=== PATIENT | female | born 1965 | race Caucasian/White ===

== ENCOUNTER → 2021-12-10 11:00 | Outpatient (CLI) | payer BC, SELFPAY | PROVIDERS: PCP Student in an Organized Health Care Education/Training Program; Referring Provider Orthopaedic Surgery Orthopaedic Surgery of the Spine; Visit Provider Orthopaedic Surgery Orthopaedic Surgery of the Spine | DX: Z53.20 Procedure and treatment not carried out because of patient's decision for unspecified reasons (principal) ==

== ENCOUNTER → 2021-12-13 12:36 | Outpatient (CLI) | payer BC, SELFPAY ==
--- NOTE | 2021-12-13 12:43 | DI.MRI.S_ITS ---
PROCEDURE: MR LUMBAR SPINE WO CON INDICATIONS: Spinal stenosis, lumbar region TECHNIQUE: Noncontrast sagittal T1 spin echo and T2 fast echo, sagittal STIR, and T2 fast spin echo through the lumbar spine. In cases with scoliosis, additional coronal T2 fast spin echo may be performed. COMPARISON: [facility] Outside Film, RG, SPINE LUMB MIN 4VW, 02/01/2017, 15:20. FINDINGS: Image quality: Excellent. Alignment and Curvature: There is normal bony alignment. Bone Marrow: Marrow is of normal overall signal. No acute vertebral body compression fractures. Or superior endplate compression deformity at L1 is unchanged from the study dated February 01, 2017. Spinal Cord: Conus medullaris terminates at the L1 level. Visualized cord demonstrates normal signal and size. Paraspinous Soft Tissues: No paravertebral masses. T12-L1: Moderate disc desiccation and height loss. Broad-based disc bulge. No canal stenosis. No neural foraminal stenosis. L1-L2: Mild disc desiccation and height loss. Mild facet and ligamentum flavum hypertrophy. No canal stenosis. No neural foraminal narrowing. L2-L3: Broad-based disc bulge. No canal stenosis. No foraminal stenosis. L3-L4: No canal stenosis or foraminal narrowing. L4-L5: Moderate disc desiccation and height loss. Vacuum disc phenomenon. Severe facet and ligamentum flavum hypertrophy. There is a 1.2 x 0.6 by 1.0 cm left paracentral disc protrusion with resultant severe canal stenosis. Mild bilateral foraminal narrowing. L5-S1: Moderate disc desiccation and height loss. Vacuum disc phenomenon. Moderate facet and ligamentum flavum hypertrophy. No canal stenosis. Moderate right foraminal narrowing. No left neural foraminal stenosis. IMPRESSION: 1. Left paracentral disc protrusion at L4-5 with resultant severe canal stenosis. 2. Moderate right foraminal narrowing at L5-S1. 3. No other significant canal stenosis or foraminal stenosis of the lumbar spine. Dictated by: Saadia Mart M.D. on 12/15/2021 at 14:54 Approved by: Saadia Mart M.D. on 12/15/2021 at 14:58
== END ==
PROVIDERS: PCP Student in an Organized Health Care Education/Training Program; Referring Provider Orthopaedic Surgery Orthopaedic Surgery of the Spine; Visit Provider Orthopaedic Surgery Orthopaedic Surgery of the Spine
DX: M51.26 Other intervertebral disc displacement, lumbar region (principal); M48.061 Spinal stenosis, lumbar region without neurogenic claudication; M48.07 Spinal stenosis, lumbosacral region
CPT/HCPCS: 72148

== ENCOUNTER 2022-05-20 11:16 | Inpatient (IN) | payer BC, SELFPAY ==
[2022-05-19 08:01] VITALS: BMI 48.4
[2022-05-20] VITALS (12 sets, daily range): BP systolic 91–132; BP diastolic 44–99; PULSE 60–109; RESP 12–18; TEMP 35.9–36.7; O2SAT 92–97; BMI 46.8
--- NOTE | 2022-05-20 | DI.RAD.S_ITS ---
PROCEDURE: XR LUMBAR SPINE 2-3V INDICATIONS: L4-5 MIRCRODISCECTOMY TECHNIQUE: 2 intraoperative fluoroscopic images were obtained. COMPARISON: None. FINDINGS: Two intraoperative fluoroscopic images were obtained from L4-5 microdiskectomy. IMPRESSION: Intraprocedural fluoroscopy was provided for guidance and anatomical localization. Please see the procedure report for further details. Dictated by: Jose Guadalupe Dai M.D. on 05/20/2022 at 16:34 Approved by: Jose Guadalupe Dai M.D. on 05/20/2022 at 16:38
[2022-05-20] MEDS: DEXTROSE GEL(NEWBORN HYPOGLYC) 37 ML/TUBE GEL..GRAM. PO (12:45)
[2022-05-20] MEDS: DEXTROSE 5%-LACTATED RINGERS 250 ML 999 ML IV (13:00)
[2022-05-20 13:04] LABS: COVID19 -Nasal RAPID Negative (Negative)
--- NOTE | 2022-05-20 13:54 | SUR.PREOP ---
Pt to preop in wheelchair. Pt states she has not been able to walk last few days due to back pain radiating into legs and numbness. States she has been pivoting into commode at home. Placed on cart with assist x4. Pt states she has been feeling poorly last five days and not eating much, but has been drinking a lot of cranberry juice. Pt states she feel slightly confused. Initial blood sugar checked resulted as less that 20. Pt states blood sugar this am at home was 29. Pt states she did not treat it as she didn't know she was supposed to. Dr Abdalla notified. Pt difficult Iv stick. Oral glucose was being given when lab here to draw glucose. IV achieved and D5LR bolus given. Blood sugar recheck = 59. Pt feeling less confused. Dr Pabon updated. Lab glucose not resulted as of yet.
--- NOTE | 2022-05-20 14:18 | PM.PREOP ---
Pre-operative Note COVID-19 COVID-19 status: Negative Result date/Date tested (Pos, Neg/Pending): 05/19/22 Criteria for continued procedure: Expected advancement of disease process, Possibility delay results in more complex future surgery or treatment, Increased loss of function, Continuing or worsening of significant or severe pain, Deterioration of the patient's condition or overall health and Delay expected to result in less-positive ultimate med/surg outcome Interval Note History & Physical reviewed/Exam performed by Physician: Yes Changes to H&P: No
[2022-05-20 14:23] LABS: Glucose 27 mg/dL (70-100)
--- NOTE | 2022-05-20 14:44 | PM.OP.1 ---
Operative Date/Time/Diagnoses Date of procedure: 05/20/22 Time of procedure: 15:15 Pre-op diagnosis: 1. L4-5 disc herniation 2. Lumbar radiculopathy Post-op diagnosis: same Procedure & Clinicians Procedure: 1. L4-5 left microdiscectomy 2. Utilization of microsurgical technique and operating microscope Same procedure as scheduled: Yes Indications: Patient has been having chronic back pain and worsening lumbar radiculopathy. Patient failed multiple conservative management with worsening pain weakness and numbness in her lower extremity. Patient has been having difficulty performing activity of daily living. After discussing risks benefits of treatment options, patient elected proceed with surgery. Surgeon: Haylee Saldaña Route Service Representative: Milla Ventura Click Yes if Unassisted: No Anesthesia Type: General Operative Notes Closure Type: primary Specimen(s): none sent Estimated Blood Loss (mL): 5 Blood products transfused: none Procedure in detail: Patient was seen in the preoperative area. Risks and benefits of the surgery was discussed with the patient. Informed consent was obtained from the patient and placed in the chart. Surgical site was marked. Patient was taken to the operative room. General anesthesia was administered. Prophylactic antibiotic was given to the patient less than 30 min before the incision was made. Patient was placed into a prone position on the Jarret table. Patient's back was then prepped and draped in the sterile fashion. Time-out was performed at this time. During the process of placing the patient into the prone position on the Jarret table, patient was identified to have significantly poor hygiene with foul odor coming from many parts of her body. There is significant rash underneath crevices of both breasts. There is abdominal rash also due to poor hygiene. Using AP and lateral C-arm imaging the interval between L4-5 was identified and marked on patient's back. A 1 inch incision 1 in from midline was made on the left side. The fascia was incised in line with skin incision. Globus MARS retractors was placed inside the incision and docked onto the L4 lamina. Using microsurgical technique and operating microscope, a L4 laminotomy was performed using a Kerrison rongeur. Liagamentum flavum was resected at the site of the laminotomy. The disc space at L4-5 was identified. Microdiscectomy was performed by incising the annulus with #11 blade. Microcurettes and pituitary was used to removed herniated disc fragments of disc from the epidural space. After the microdiskectomy was completed, the area medial lateral superior and inferior to the area of the microdiskectomy was inspected and explored using a micro curette. No other impinging structure was identified. During the process of performing the laminotomy, a small pinhole size durotomy was encountered. To seal fibrin sealant was obtained and placed on top of this durotomy. No CSF leakage was encountered. The wound was then irrigated with sterile normal saline. 40 mg Depo-Medrol was placed into the epidural space. The deep fascia was closed with 1-0 Vicryl. The subcutaneous tissue was closed with 2-0 Vicryl. The skin was closed with skin arturo. Patient tolerated the procedure well. There were no complications. Patient was transferred recovery room in stable condition. Patient has a pinhole-sized durotomy which is not having active CSF leakage. Patient may progress activity as tolerated without having to perform any dural leak precaution due to the lack of active CSF leakage. Complications: none Post-operative Condition: stable Disposition: PACU Plan for aftercare: Discharge to home
--- NOTE | 2022-05-20 15:22 | PC.NURSE ---
Day shift: Pt not in room 216 at this time.
[2022-05-20] MEDS: CEFAZOLIN 2 GM/100 ML PREMIX 100 ML IV ×2 (15:27→23:32)
[2022-05-20] MEDS: LACTATED RINGERS 1,000 ML 84 ML IV (15:45)
[2022-05-20] MEDS: BUPIVACAINE 0.5% W/ EPI (PF) 30 ML VIAL INJ (15:53)
--- NOTE | 2022-05-20 16:07 | SUR.OPER ---
Prone on spine table, head in foam head support, padded chest and pelvic supports, gel pad at knees, lower legs supported by pillows; nipples, genitalia and toes free of pressure, arms secured on foam padded arm boards at <90 degrees abduction. Tape over blanket at thigh secured to table, gel pads to all areas of leg that touched side bars of Jarret Table. gel between heels
[2022-05-20] MEDS: ONDANSETRON 4 MG/2 ML INJ IV ×2 (17:26→20:20)
--- NOTE | 2022-05-20 17:33 | SUR.PHASEI ---
Pt discharge order cancelled per MD order. Pt does not meet criteria for discharge to home this evening due to CBG on admit 20 and multiple medical problems, inability to ambulate prior to surgery.
--- NOTE | 2022-05-20 18:13 | PC.NURSE ---
Day shift: Pt in room from PACU at approx 1800. Tired but A&Ox4. Denies any pain or nausea. Bed alarm is on. Oriented to room and call light. Yeast/rash noted from OR team under breasts, ABD folds and groin area. Call light in reach. Bed alarm is on. Tolerating SCD's. Dressing on back (op-site) is CDI.
[2022-05-20] MEDS: SODIUM CHLORIDE 0.9% 1,000 ML 100 ML IV (18:20)
--- NOTE | 2022-05-20 18:45 | PC.WOUNDPHOT ---
Wound Photos 1) Under left breast 2) Under right breast 3) Under right breast 4) Under abdominal pannus
[2022-05-20] MEDS: NYSTATIN POWDER 15GM 1 APPLIC TOP (19:46)
[2022-05-20] MEDS: hydrOXYzine pamoate 25 MG CAPSULE PO (19:46)
[2022-05-20] MEDS: DOCUSATE 100 MG CAPSULE PO (20:07)
[2022-05-20] MEDS: NORTRIPTYLINE 10 MG CAPSULE 20 MG PO (20:07)
[2022-05-20] MEDS: ATORVASTATIN 20 MG TABLET PO (20:07)
[2022-05-20] MEDS: GABAPENTIN 400 MG CAPSULE 800 MG PO (20:07)
[2022-05-20] MEDS: METFORMIN HCL 500 MG TABLET 1000 MG PO (20:07)
[2022-05-20] MEDS: OXYCODONE IR 5 MG TABLET PO (20:07)
[2022-05-20] MEDS: SENNOSIDES 8.6 MG TABLET 17.2 MG PO (20:08)
[2022-05-21] VITALS (21 sets, daily range): BP systolic 61–147; BP diastolic 34–73; PULSE 60–118; RESP 16–46; O2SAT 85–97
--- NOTE | 2022-05-21 | DI.RAD.S_ITS ---
PROCEDURE: XR CHEST FOR PICC 1V INDICATIONS: TUBE PLACEMENT TECHNIQUE: One view of the chest was acquired. COMPARISON: [facility], , XR CHEST 1V, 05/21/2022, 3:09. FINDINGS: Surgical changes and devices: The tip of the endotracheal tube is at the level of ashlyn. There is a right IJ central line with the tip projecting to the area of SVC. Cardiac monitoring device is noted. Lungs and pleura: Bilateral diffuse pulmonary infiltrates. No pleural effusions or pneumothorax. Mediastinum: Mediastinal contours appear normal. Heart size is normal. Bones and chest wall: No suspicious bony lesions. Overlying soft tissues appear unremarkable. IMPRESSION: 1. Endotracheal tube tip at the level of ashlyn. Recommend repositioning. 2. Right IJ central line tip projecting to the area of SVC. 3. Bilateral pulmonary infiltrates compatible with pulmonary edema or bilateral pneumonia. No significant discrepancy with the night shift manager radiology preliminary report. Dictated by: Otf Flores M.D. on 05/21/2022 at 7:51 Approved by: Otf Flores M.D. on 05/21/2022 at 7:54
[2022-05-21] MEDS: ONDANSETRON 4 MG/2 ML INJ IV (02:26)
[2022-05-21] MEDS: NOREPINEPHRINE BITARTRATE/D5W 4 MG/250 ML PLAST..BAG 60 MG IV (03:00)
--- NOTE | 2022-05-21 03:16 | DI.RAD.S_ITS ---
PROCEDURE: XR CHEST 1V INDICATIONS: NSTEMI TECHNIQUE: One view of the chest was acquired. COMPARISON: [facility], , XR CHEST FOR PICC 1V, 05/21/2022, 3:09. FINDINGS: Surgical changes and devices: None. Lungs and pleura: Bilateral perihilar infiltrates compatible with pulmonary edema. Small left pleural effusion. No pneumothorax. Mediastinum: Mediastinal contours appear normal. Heart size is normal. Bones and chest wall: No suspicious bony lesions. Overlying soft tissues appear unremarkable. IMPRESSION: 1. Mild pulmonary edema. 2. Small left pleural effusion. No significant discrepancy with the product transfer pumper radiology preliminary report. Dictated by: Otf Flores M.D. on 05/21/2022 at 8:10 Approved by: Otf Flores M.D. on 05/21/2022 at 8:12
--- NOTE | 2022-05-21 03:42 | P.EN_ITS ---
Event Note Event Note (Rapid Response, Code, or fall): called by floor nurse around 3AM -- pt with nausea (had zofran 30 min prior). POD 1 L spine surgery (microsdiscectomy L4-5). noted BP had been 90/60s then was 60s/40, improved to 70s/50s with Trendelenberg. also informed by nurse, had increased O2 to 15L 88-90% (from 3L). stated Blood glucose 302 (diabetic pt had presented perop with hypoglycemia). had fluids @100ml/hr I requested Hospitalist evaluation. received up date approx 330. vitals had declined, code called, and workup r evealed cardiac event, care with ER physician and hospitalist team (told NSTEMI), heparin drip initiated and planned transfer to cardiac center.
[2022-05-21 04:04] LABS: Alanine Aminotransferase 22 IU/L (<35); Albumin 4.1 g/dL (3.5-5.0); Albumin Globulin Ratio 1.3 (1.0-2.8); Alkaline Phosphatase 100 U/L (38-126); Aspartate Aminotransferase 17 IU/L (14-36); Bilirubin Total 0.3 mg/dL (0.2-1.3); Calcium 7.6 mg/dL (8.4-10.2); Chloride 95 mmol/L (98-107); Creatine Kinase 173 U/L (30-135); Globulin 3.1 g/dL (1.7-4.1); Glucose 303 mg/dL (70-100); HEMOLYSIS < 15 (0-50); Magnesium 1.8 mg/dL (1.6-2.3); Sodium 133 mmol/L (137-145); Total Protein 7.2 g/dL (6.3-8.2)
[2022-05-21 04:11] LABS: BUN Creatinine Ratio 7.9 (6-22); Estimated Glomerular Filt Rate 3 mL/min (>60)
[2022-05-21 04:15] LABS: Blood Urea Nitrogen 120 mg/dL (7-17); Carbon Dioxide 8 mmol/L (22-32); Potassium 9.7 mmol/L (3.4-5.1)
[2022-05-21 04:16] LABS: Troponin I 0.072 ng/mL (0.01-0.034)
[2022-05-21 04:20] LABS: CKMB % Relative Index 1.7 % (1.5-5.0)
[2022-05-21 04:25] LABS: Albumin 3.6 g/dL (3.5-5.0); Albumin Globulin Ratio 1.2 (1.0-2.8); Alkaline Phosphatase 93 U/L (38-126); Bilirubin Total 0.4 mg/dL (0.2-1.3); Chloride 97 mmol/L (98-107); Globulin 2.9 g/dL (1.7-4.1); Sodium 140 mmol/L (137-145); Total Protein 6.5 g/dL (6.3-8.2)
[2022-05-21 04:31] LABS: BUN Creatinine Ratio 8.4 (6-22); Estimated Glomerular Filt Rate 3 mL/min (>60); HEMOLYSIS 22 (0-50)
[2022-05-21 04:38] LABS: Alanine Aminotransferase 203 IU/L (<35); Aspartate Aminotransferase 226 IU/L (14-36); Blood Urea Nitrogen 117 mg/dL (7-17); Carbon Dioxide 7 mmol/L (22-32); Glucose 404 mg/dL (70-100); Potassium 7.2 mmol/L (3.4-5.1)
--- NOTE | 2022-05-21 04:50 | P.CONS_ITS ---
History of Present Illness Consult details Date Patient Seen: 05/21/22 Chief complaint: INPT Reason for consult: code blue Requesting provider: Haylee Saldaña Narrative: Called to patient bedside as a code blue. Patient is a 56-year-old female post operative microdiskectomy L4-5 thought to have a STEMI. Very wide complex bradycardic EKG. Patient is hypotensive diaphoretic but is awake and alert. She is having some mild chest discomfort but not bad. When asked about code status she is full code. Concern for probable hyperkalemia. Unfortunately no labs were drawn preop or postop. Patient started to lose pulses and CPR started. I start did confirm potassium greater than 9. Bicarb was pushed. Amiodarone also started cases possible VFib she got 150 mg at the time she was still awake. POC glucose was in the 300s. CPR continued epinephrine insulin and glucose were also given. Patient became more responsive but not able to protect airway. Complex on the monitor did change and became significantly more narrow. No obvious ST elevations. Patient was intubated and a central line placed by myself. Patient is not a STEMI. Meds Home Medications and Allergies Home Medications Medication Instructions Recorded Confirmed Type acetaminophen 500 mg tablet 1,000 mg PO QD-BID PRN Pain 05/19/22 05/20/22 History amlodipine 2.5 mg tablet 2.5 mg PO DAILY 05/19/22 05/20/22 History gabapentin 800 mg tablet 800 mg PO BID 05/19/22 05/20/22 History glipizide 10 mg tablet 10 mg PO DAILY 05/19/22 05/20/22 History ibuprofen 200 mg tablet (Advil) 600 mg PO QD-BID PRN Pain 05/19/22 05/20/22 History lisinopril 40 mg tablet 40 mg PO DAILY 05/19/22 05/20/22 History metformin 500 mg tablet 1,000 mg PO BID 05/19/22 05/20/22 History metoprolol succinate 50 mg 50 mg PO DAILY 05/19/22 05/20/22 History tablet,extended release 24 hr nortriptyline 10 mg capsule 20 mg PO BEDTIME 05/19/22 05/20/22 History pantoprazole 40 mg tablet,delayed 40 mg PO DAILY 05/19/22 05/20/22 History release simvastatin 40 mg tablet 40 mg PO BEDTIME 05/19/22 05/20/22 History cyclobenzaprine 7.5 mg tablet 7.5 mg PO PRN PRN Pain (Scale 05/20/22 05/20/22 History Score 4-6) hydrocodone 5 mg-acetaminophen 325 5 tab PO Q8H PRN pain 05/20/22 05/20/22 History mg tablet oxycodone 5 mg tablet 5 mg PO Q4H PRN pain #40 tabs 05/20/22 Rx Allergies Allergy/AdvReac Type Severity Reaction Status Date / Time duloxetine [From Cymbalta] Allergy Intermediate Rash, Verified 05/20/22 12:03 itching Review of Systems Review of Systems Narrative: Unobtainable Exam Vital Signs (past 8 hours): - 05/20/22 22:50 05/20/22 23:45 05/21/22 01:00 Temperature 97.9 F Pulse Rate 60 86 Respiratory Rate 16 Blood Pressure 95/51 L 91/47 L 94/44 L Pulse Oximetry 93 94 Oxygen Flow Rate 2 3 Oxygen Delivery Method Room Air Oxygen Flow Rate 3 Narrative Exam Narrative: Gen.: Obese awake diaphoretic female HEENT: Head is atraumatic pupils equal round and reactive Neck: No JVD Lungs: Clear bilaterally Cardiac: Bradycardic Abdomen: Soft Extremities: Weak pulses no gross bony deformity Neurologic: Initially awake alert Objective ECG Impression: EKG 1. Wide complex-VFib versus hyperkalemia versus STEMI possible elevation in 1 and aVL EKG 2. Persistent wide complex EKG 3. Normal sinus rhythm rate [address] ST depression no T-wave inversions Imaging Chest x-ray: My impression: Initial chest x-ray did not show any pneumothorax. Does show some left atelectasis CX2: My impression: Central line in place ET tube at ashlyn needs to be pulled back. Persistent left-sided atelectasis. Possible cardiomegaly. Labs Result Diagrams: 05/21/22 03:20 05/21/22 04:15 Labs: Laboratory Results - last 24 hr 05/20/22 05/20/22 05/21/22 12:29 12:55 03:20 Sodium 133 L Potassium 9.7 H* Chloride 95 L Carbon Dioxide 8 L* BUN 120 H* Creatinine 15.2 H* Estimated GFR 3 L BUN/Creatinine Ratio 7.9 Glucose 27 L* 303 H D Calcium 7.6 L Magnesium 1.8 Total Bilirubin 0.3 AST 17 ALT 22 Alkaline Phosphatase 100 Total Creatine Kinase 173 H CK-MB (CK-2) 2.90 H CK-MB (CK-2) Rel Index 1.7 Troponin I 0.072 H Total Protein 7.2 Albumin 4.1 Globulin 3.1 Albumin/Globulin Ratio 1.3 SARS-CoV-2 (PCR) Negative 05/21/22 04:15 Sodium 140 Potassium 7.2 H* D Chloride 97 L Carbon Dioxide 7 L* BUN 117 H* Creatinine 13.9 H* Estimated GFR 3 L BUN/Creatinine Ratio 8.4 Glucose 404 H D Calcium 9.0 Magnesium Total Bilirubin 0.4 AST 226 H ALT 203 H Alkaline Phosphatase 93 Total Creatine Kinase CK-MB (CK-2) CK-MB (CK-2) Rel Index Troponin I Total Protein 6.5 Albumin 3.6 Globulin 2.9 Albumin/Globulin Ratio 1.2 SARS-CoV-2 (PCR) [facility] Medical History (Updated 05/19/22 @ 09:27 by Devora West RN) Diabetes GERD (gastroesophageal reflux disease) HLD (hyperlipidemia) HTN (hypertension) Lumbar disc herniation Neuropathy Ovarian cancer (~2014) Sciatica Surgical History (Updated 05/19/22 @ 09:27 by Devora West RN) History of hysterectomy Social History household members: significant other Tobacco & Substance Use Smoking Status: Former smoker alcohol intake: current Assessment & Plan Assessment & Plan narrative: 1. Status post cardiac arrest secondary to hyperkalemia -calcium gluconate given, bicarb, insulin, glucose, need Lokelma, Lasix, albumin 2. Respiratory failure -patient is intubated 3. Shock -Levophed maintain map greater than 65 Hospitalist ICU clarity developer all to manage Time Spent With Patient Critical Care time: I spent a total of [] minutes of critical care time on this patient's care today; this time is exclusive of procedural time.
--- NOTE | 2022-05-21 04:50 | PC.NURSE ---
cow buyer, Pt had low BP 98/51 2300 with an increase need for oxygen combi mask placed and O2 increased to from 2 liters 5 to maintain SPO2% 92, repeated BP q 15 minutes, BP continued to trend downward. Called Dr Tapia (traffic control technician provider) notified of low BP and increase need of Oxygen. Dr Tapia consulted to Hospitalists IVET Mata, Pt Blood pressure continued to drop and SPO2% dropped down to 88 and BP 61/34, placed Pt into [place] position and increased oxygen to 15 liters. Charge Nurse notified, Pt's vital signs continued to decline emergency staff button was activated and then code blue was activated. Emergency room Provider and staff and code team presented at approximately 0311.Code team began care and treatment for NSTEMI. Dr Tapia contacted and notified of update on Pt status. Life Partner Kemi Ibarray was contacted and updated on Pt status as per Emergency Family Contact list.
[2022-05-21 04:56] LABS: Add Manual Diff / Slide Review NO; Basophils Absolute Auto 0 /uL (0-100); Basophils Percent Auto 0.1 % (0-2); Eosinophils Absolute Auto 0 /uL (0-450); Hematocrit 36.1 % (36-46); Hemoglobin 11.3 g/dL (12.0-16.0); Lymphocytes Absolute Auto 800 /uL (1100-4500); Lymphocytes Percent Auto 3.9 % (25-40); Mean Corpuscular HGB Conc 31.4 % (30-36); Mean Corpuscular Volume 92.3 fL (80-100); Monocytes Absolute Auto 100 /uL (0-900); Monocytes Percent Auto 0.6 % (3-14); Neutrophils Absolute Auto 20100 /uL (1500-7000); Neutrophils Percent Auto 95.4 % (50-75); Platelet Count 386 X10^3/uL (150-400); Red Blood Cell Count 3.91 X10^6/uL (4.0-5.2); Red Cell Distribution Width 14.4 % (11.6-14.8); White Blood Cell Count 21.1 X10^3/uL (4.5-11.0)
[2022-05-21 05:04] LABS: HCO3 ABG 10 mmol/L (22-26); PCO2 ABG 36.7 mmHg (35-45); PO2 ABG 38 mmHg (80-100); TCO2 ABG 12 mmol/L (21-31)
[2022-05-21 05:05] LABS: Fractionated Inspired Oxygen 15; Oxygen Saturation ABG 52 % (95-100)
[2022-05-21] MEDS: INSULIN REGULAR 100 UNIT/ML 3 ML VIAL 10 UNIT IV ×2 (05:05→06:54)
[2022-05-21 05:09] LABS: Fractionated Inspired Oxygen 100; HCO3 ABG 8 mmol/L (22-26); Oxygen Saturation ABG 86 % (95-100); PCO2 ABG 37.5 mmHg (35-45); PO2 ABG 82 mmHg (80-100); TCO2 ABG 9 mmol/L (21-31)
--- NOTE | 2022-05-21 05:21 | P.CONS_ITS ---
History of Present Illness Consult details Date Patient Seen: 05/21/22 Time Patient Seen: 03:00 Chief complaint: INPT Reason for consult: Code blue Narrative: Nursing contacted me requesting consult by Orthopedic surgery for this patient hyacinth mendez is a 56-year-old female pod 1. L5-6 lumbar laminectomy. She was noted to have very soft blood pressures and by the time I came up to the floor her blood pressure was in the low 90s. Apparently during that time it dropped even to a systolic of 60, the patient was reportedly complaining of chest pain and difficulty breathing and by the time I reached the floor CPR was being performed on the patient. EKG was done and patient was thought to be having a STEMI. She apparently told her nurse that she had mild chest pain. CPR was underway when I arrived to the room. Meds Home Medications and Allergies Home Medications Medication Instructions Recorded Confirmed Type acetaminophen 500 mg tablet 1,000 mg PO QD-BID PRN Pain 05/19/22 05/20/22 History amlodipine 2.5 mg tablet 2.5 mg PO DAILY 05/19/22 05/20/22 History gabapentin 800 mg tablet 800 mg PO BID 05/19/22 05/20/22 History glipizide 10 mg tablet 10 mg PO DAILY 05/19/22 05/20/22 History ibuprofen 200 mg tablet (Advil) 600 mg PO QD-BID PRN Pain 05/19/22 05/20/22 History lisinopril 40 mg tablet 40 mg PO DAILY 05/19/22 05/20/22 History metformin 500 mg tablet 1,000 mg PO BID 05/19/22 05/20/22 History metoprolol succinate 50 mg 50 mg PO DAILY 05/19/22 05/20/22 History tablet,extended release 24 hr nortriptyline 10 mg capsule 20 mg PO BEDTIME 05/19/22 05/20/22 History pantoprazole 40 mg tablet,delayed 40 mg PO DAILY 05/19/22 05/20/22 History release simvastatin 40 mg tablet 40 mg PO BEDTIME 05/19/22 05/20/22 History cyclobenzaprine 7.5 mg tablet 7.5 mg PO PRN PRN Pain (Scale 05/20/22 05/20/22 History Score 4-6) hydrocodone 5 mg-acetaminophen 325 5 tab PO Q8H PRN pain 05/20/22 05/20/22 Histo ry mg tablet oxycodone 5 mg tablet 5 mg PO Q4H PRN pain #40 tabs 05/20/22 Rx Allergies Allergy/AdvReac Type Severity Reaction Status Date / Time duloxetine [From Cymbalta] Allergy Intermediate Rash, Verified 05/20/22 12:03 itching Review of Systems Review of Systems ROS: Yes unobtainable due to endotracheal tube Exam Vital Signs (past 8 hours): - 05/20/22 22:50 05/20/22 23:45 05/21/22 01:00 Temperature 97.9 F Pulse Rate 60 86 Respiratory Rate 16 Blood Pressure 95/51 L 91/47 L 94/44 L Pulse Oximetry 93 94 Oxygen Flow Rate 2 3 Oxygen Delivery Method Room Air Oxygen Flow Rate 3 Narrative Exam Narrative: Gen: Arousable, morbidly obese 56 y.o. female HEENT: normocephalic, atraumatic, conjunctiva clear, sclera non-icteric, oral mucosa pink and moist Neck: supple, full ROM, no JVD, trachea is midline Resp: Patient is currently vented CV: Patient alternated between having a pulse and being pulseless, EKG showed STEMI changes Abd: Obese Skin: Appears to have Joanie in her pannus area Neuro: Speech clear and coherent just prior to intubation obtunded Extremities: Appears to have good cap refill Psyche: Unable to assess Objective Labs Result Diagrams: 05/21/22 03:20 05/21/22 04:15 Labs: Laboratory Results - last 24 hr 05/20/22 05/20/22 05/21/22 12:29 12:55 03:20 WBC RBC Hgb Hct MCV MCH MCHC RDW Plt Count Neut % (Auto) Lymph % (Auto) [place] % (Auto) Eos % (Auto) Baso % (Auto) Neut # (Auto) Lymph # (Auto) [place] # (Auto) Eos # (Auto) Baso # (Auto) ABG pH ABG pCO2 ABG pO2 ABG HCO3 ABG Total CO2 ABG O2 Saturation ABG Base Excess FiO2 Sodium 133 L Potassium 9.7 H* Chloride 95 L Carbon Dioxide 8 L* BUN 120 H* Creatinine 15.2 H* Estimated GFR 3 L BUN/Creatinine Ratio 7.9 Glucose 27 L* 303 H D Calcium 7.6 L Magnesium 1.8 Total Bilirubin 0.3 AST 17 ALT 22 Alkaline Phosphatase 100 Total Creatine Kinase 173 H CK-MB (CK-2) 2.90 H CK-MB (CK-2) Rel Index 1.7 Troponin I 0.072 H Total Protein 7.2 Albumin 4.1 Globulin 3.1 Albumin/Globulin Ratio 1.3 SARS-CoV-2 (PCR) Negative 05/21/22 05/21/22 05/21/22 03:20 03:35 04:15 WBC 21.1 H RBC 3.91 L Hgb 11.3 L Hct 36.1 MCV 92.3 MCH 29.0 MCHC 31.4 RDW 14.4 Plt Count 386 Neut % (Auto) 95.4 H Lymph % (Auto) 3.9 L [place] % (Auto) 0.6 L Eos % (Auto) 0.0 L Baso % (Auto) 0.1 Neut # (Auto) 08670 H Lymph # (Auto) 800 L [place] # (Auto) 100 Eos # (Auto) 0 Baso # (Auto) 0 ABG pH 7.06 L* ABG pCO2 36.7 ABG pO2 38 L* ABG HCO3 10 L ABG Total CO2 12 L ABG O2 Saturation 52 L* ABG Base Excess -20.0 L FiO2 15 Sodium 140 Potassium 7.2 H* D Chloride 97 L Carbon Dioxide 7 L* BUN 117 H* Creatinine 13.9 H* Estimated GFR 3 L BUN/Creatinine Ratio 8.4 Glucose 404 H D Calcium 9.0 Magnesium Total Bilirubin 0.4 AST 226 H ALT 203 H Alkaline Phosphatase 93 Total Creatine Kinase CK-MB (CK-2) CK-MB (CK-2) Rel Index Troponin I Total Protein 6.5 Albumin 3.6 Globulin 2.9 Albumin/Globulin Ratio 1.2 SARS-CoV-2 (PCR) 05/21/22 04:25 WBC RBC Hgb Hct MCV MCH MCHC RDW Plt Count Neut % (Auto) Lymph % (Auto) [place] % (Auto) Eos % (Auto) Baso % (Auto) Neut # (Auto) Lymph # (Auto) [place] # (Auto) Eos # (Auto) Baso # (Auto) ABG pH 6.92 L* ABG pCO2 37.5 ABG pO2 82 ABG HCO3 8 L ABG Total CO2 9 L ABG O2 Saturation 86 L ABG Base Excess -25.0 L FiO2 100 Sodium Potassium Chloride Carbon Dioxide BUN Creatinine Estimated GFR BUN/Creatinine Ratio Glucose Calcium Magnesium Total Bilirubin AST ALT Alkaline Phosphatase Total Creatine Kinase CK-MB (CK-2) CK-MB (CK-2) Rel Index Troponin I Total Protein Albumin Globulin Albumin/Globulin Ratio SARS-CoV-2 (PCR) PFSH Medical History Diabetes GERD (gastroesophageal reflux disease) HLD (hyperlipidemia) HTN (hypertension) Lumbar disc herniation Neuropathy Ovarian cancer (~2014) Sciatica Surgical History History of hysterectomy Comment: Patient is intubated unable to speak and is from [place] so we do not have her current medical records and I am not able to obtain a family history from her. Social History household members: significant other Tobacco & Substance Use Smoking Status: Former smoker alcohol intake: current Assessment & Plan Assessment & Plan narrative: Padmini Beck is a 56-year-old female pod 1. L5-6 lumbar laminectomy is found to have severe hyperkalemia, severe hypotension, suspected STEMI and is moved from the medical-surgical unit to critical care and is awaiting transfer to a critical care facility for emergent dialysis. Cardiac arrest in the setting of acute hyperkalemia * Patient underwent several rounds of CPR and was eventually restored to a more normal rhythm after having her potassium corrected * Patient was initiated on a heparin drip but this has now been discontinued * Initial troponin is elevated at 0.072, 2nd troponin is 0.297 CK-MB is also elevated at 2.9 and total creatinine kinase is elevated 173, possibly due to CPR/muscle insult vs renal failure * She received epinephrine and acheived ROSC in approximately 15 minutes * She also received IV amiodarone 150 mg X 1 * Currently on levaphed drip of 16 and vasopressen drip was just started. Acute renal failure in the setting of severe hyperkalemia * Initial potassium was 9.7. She was administered D5 and 10 units of IV insulin, repeat lab her potassium was 7.2, now 8.2 * She is ordered for another 10 units of IV insulin, D5 is being held due to her elevated blood glucose * Creatinine prior to insulin and D5 was 15.2, repeat 13.9 and now 14.8, EGFR is 3 * Patient needs to be transferred for emergent dialysis Acute respiratory failure with a severe uncompensated respiratory acidosis * Patient is currently intubated, vent settings per eICU, tidal volume 425, FiO2 100%, respiratory rate 32 and a PEEP of 10 * She has a large left pleural effusion presumably infectious pneumonia and has been started on IV vancomycin and cefepime * Differential could be a pulmonary embolus will only be able to undergo nuclear VQ scanning due to acute renal failure * She is ordered for 5 amps of bicarb boluses along with a bicarb drip Suspected bacterial pneumonia * WBC is 21.1, left shift of 20,000, and procalcitonin is elevated at 1.21 * Lactate is 8.4 * She is started on IV cefipime renally dosed and vancomycin Discussed case with Dr. Umanzor under the hospitalist and ore digger at [facility]. She will be contacting the day team for the name of an accepting ICU physician. Updated her life partner, Kemi Ibarray who is in touch with the patient's sister. COVID-19 COVID-19 status: Negative Result date/Date tested (Pos, Neg/Pending): 05/20/22 Time Spent With Patient Critical Care time: I spent a total of 180 minutes of critical care time on this patient's care today; this time is exclusive of procedural time.
[2022-05-21] MEDS: propofoL 1,000 MG/100 ML VIAL 4.069 MG IV (05:25)
[2022-05-21] MEDS: SODIUM BICARB 8.4% SYRINGE 50 MEQ IV ×3 (05:28→07:12)
[2022-05-21] MEDS: VASOPRESSIN 40 UNIT in SODIUM CHLORIDE 0.9% 100 ML 6 UNIT IV (06:00)
[2022-05-21 06:06] LABS: Hemoglobin A1C% w Est Avg Glu 6.7 % (4.0-6.0)
[2022-05-21] MEDS: WATER FOR IRRIGATION STERILE IV (06:11)
[2022-05-21] MEDS: SODIUM BICARB IV (06:11)
--- NOTE | 2022-05-21 06:19 | P.TELICUCN_ITS ---
History of Present Illness Consult details IF CAMERA ACTIVATED, patient seen via real-time interactive audiovisual communication: Camera activated Chief complaint: INPT Consent obtained for tele-leach tank tender care: Yes Patient Location: ICU Provider location (State): Other participants/roles: BRICK YARD HAND,RN [facility], LAT[facility] Medical History Diabetes GERD (gastroesophageal reflux disease) HLD (hyperlipidemia) HTN (hypertension) Lumbar disc herniation Neuropathy Ovarian cancer (~2014) Sciatica Surgical History History of hysterectomy Social History household members: significant other Smoking Status: Former smoker alcohol intake: current Current Medications Current Medications Medications: Home Medications acetaminophen 500 mg tablet 1,000 mg PO QD-BID PRN Pain 05/19/22 [History Confirmed 05/20/22] amlodipine 2.5 mg tablet 2.5 mg PO DAILY 05/19/22 [History Confirmed 05/20/22] gabapentin 800 mg tablet 800 mg PO BID 05/19/22 [History Confirmed 05/20/22] glipizide 10 mg tablet 10 mg PO DAILY 05/19/22 [History Confirmed 05/20/22] ibuprofen 200 mg tablet (Advil) 600 mg PO QD-BID PRN Pain 05/19/22 [History Confirmed 05/20/22] lisinopril 40 mg tablet 40 mg PO DAILY 05/19/22 [History Confirmed 05/20/22] metformin 500 mg tablet 1,000 mg PO BID 05/19/22 [History Confirmed 05/20/22] metoprolol succinate 50 mg tablet,extended release 24 hr 50 mg PO DAILY 05/19/22 [History Confirmed 05/20/22] nortriptyline 10 mg capsule 20 mg PO BEDTIME 05/19/22 [History Confirmed 05/20/22] pantoprazole 40 mg tablet,delayed release 40 mg PO DAILY 05/19/22 [History Confirmed 05/20/22] simvastatin 40 mg tablet 40 mg PO BEDTIME 05/19/22 [History Confirmed 05/20/22] cyclobenzaprine 7.5 mg tablet 7.5 mg PO PRN PRN Pain (Scale Score 4-6) 05/20/22 [History Confirmed 05/20/22] hydrocodone 5 mg-acetaminophen 325 mg tablet 5 tab PO Q8H PRN pain 05/20/22 [History Confirmed 05/20/22] oxycodone 5 mg tablet 5 mg PO Q4H PRN pain #40 tabs 05/20/22 [Rx] Visit Medications (administered) Generic Name Dose Route Start Last Admin Trade Name Prosper PRN Reason Stop Dose Admin Propofol 1,000 mg in 100 mls @ 4.069 mls/hr 05/21/22 04:30 05/21/22 05:25 Propofol IV 5 mcg/kg/min TITRATE SARA 4.069 mls/hr Administration Protocol 5 MCG/KG/MIN Exam Vital Signs (past 8 hours): - 05/20/22 22:50 05/20/22 23:45 05/21/22 01:00 Temperature 97.9 F Pulse Rate 60 86 Respiratory Rate 16 Blood Pressure 95/51 L 91/47 L 94/44 L Pulse Oximetry 93 94 Oxygen Flow Rate 2 3 Oxygen Delivery Method Room Air Oxygen Flow Rate 3 Objective Labs Result Diagrams: 05/21/22 03:20 05/21/22 04:15 Labs: Laboratory Results - last 24 hr 05/20/22 05/20/22 05/21/22 12:29 12:55 03:20 WBC RBC Hgb Hct MCV MCH MCHC RDW Plt Count Neut % (Auto) Lymph % (Auto) [place] % (Auto) Eos % (Auto) Baso % (Auto) Neut # (Auto) Lymph # (Auto) [place] # (Auto) Eos # (Auto) Baso # (Auto) ABG pH ABG pCO2 ABG pO2 ABG HCO3 ABG Total CO2 ABG O2 Saturation ABG Base Excess FiO2 Sodium 133 L Potassium 9.7 H* Chloride 95 L Carbon Dioxide 8 L* BUN 120 H* Creatinine 15.2 H* Estimated GFR 3 L BUN/Creatinine Ratio 7.9 Glucose 27 L* 303 H D Hemoglobin A1c Calcium 7.6 L Magnesium 1.8 Total Bilirubin 0.3 AST 17 ALT 22 Alkaline Phosphatase 100 Total Creatine Kinase 173 H CK-MB (CK-2) 2.90 H CK-MB (CK-2) Rel Index 1.7 Troponin I 0.072 H Total Protein 7.2 Albumin 4.1 Globulin 3.1 Albumin/Globulin Ratio 1.3 SARS-CoV-2 (PCR) Negative 12/15/22 12/15/22 12/15/22 03:20 03:20 03:35 WBC 21.1 H RBC 3.91 L Hgb 11.3 L Hct 36.1 MCV 92.3 MCH 29.0 MCHC 31.4 RDW 14.4 Plt Count 386 Neut % (Auto) 95.4 H Lymph % (Auto) 3.9 L [place] % (Auto) 0.6 L Eos % (Auto) 0.0 L Baso % (Auto) 0.1 Neut # (Auto) 21555 H Lymph # (Auto) 800 [address] [place] # (Auto) 100 Eos # (Auto) 0 Baso # (Auto) 0 ABG pH 7.06 L* ABG pCO2 36.7 ABG pO2 38 L* ABG HCO3 10 L ABG Total CO2 12 L ABG O2 Saturation 52 L* ABG Base Excess -20.0 L FiO2 15 Sodium Potassium Chloride Carbon Dioxide BUN Creatinine Estimated GFR BUN/Creatinine Ratio Glucose Hemoglobin A1c 6.7 H Calcium Magnesium Total Bilirubin AST ALT Alkaline Phosphatase Total Creatine Kinase CK-MB (CK-2) CK-MB (CK-2) Rel Index Troponin I Total Protein Albumin Globulin Albumin/Globulin Ratio SARS-CoV-2 (PCR) 05/21/22 05/21/22 04:15 04:25 WBC RBC Hgb Hct MCV MCH MCHC RDW Plt Count Neut % (Auto) Lymph % (Auto) [place] % (Auto) Eos % (Auto) Baso % (Auto) Neut # (Auto) Lymph # (Auto) [place] # (Auto) Eos # (Auto) Baso # (Auto) ABG pH 6.92 L* ABG pCO2 37.5 ABG pO2 82 ABG HCO3 8 L ABG Total CO2 9 L ABG O2 Saturation 86 L ABG Base Excess -25.0 L FiO2 100 Sodium 140 Potassium 7.2 H* D Chloride 97 L Carbon Dioxide 7 L* BUN 117 H* Creatinine 13.9 H* Estimated GFR 3 L BUN/Creatinine Ratio 8.4 Glucose 404 H D Hemoglobin A1c Calcium 9.0 Magnesium Total Bilirubin 0.4 AST 226 H ALT 203 H Alkaline Phosphatase 93 Total Creatine Kinase CK-MB (CK-2) CK-MB (CK-2) Rel Index Troponin I Total Protein 6.5 Albumin 3.6 Globulin 2.9 Albumin/Globulin Ratio 1.2 SARS-CoV-2 (PCR) Assessment & Plan Assessment and plan (1) Septic shock: Status: Acute Plan 56-year-old female with medical H/o of DM II, HTN, admitted for/ status post- operative microdiskectomy L4-5, developed mild chest discomfort, diaphoresis and hypotension, found to have wide complex bradycardic EKG changes, Received a dose of amiodarone for possible VFib, complicated by cardiac arrest, ROSC after 14 min, found to have sever hyperkalemia (K of 9), sever renal failure, sever metabolic academia, DKA. Unfortunately no labs were drawn preop or postop.?Patient was intubated. Started on heparin for concern of NE but no ST changes or significant trop. Base line Cr per nurse1.12 0n 05/05/2022. Pt was on PPI, Lisinopril and NSAIDs per home meds review. Assessment: Cardiac arrest Sever hyperkalemia Sever TATA stage III DKA Acute hypoxic and hypercapnic resp failure Sever metabolic and respiratory acidemia Aspiration PNA ? ARDS Septic shock Post-operative microdiskectomy L4-5 H/o of ovarian cancer Rec: Wean off sedation of propfole, add fentanyl Hypoxic, acidotic, Adjusted Vent to Vc increase rate 20?28/ keep TV 420/ 5?10 PEEP/ 100% Fio2 Add vaso to levo, MAP goal 65, A line placement Add stress dose hydrocortisone Start Cefepime & Vanc, send blood and resp Cx ( pharmacy to adjust dose per GFR ( Zero GFR now) STAT Renal Ultrasound Received 3 amps of bicarb, started on Bicarb 150 ml/hr, finish 1 L and stop, Stop NS Renal Panel and ABG Q3 hr, ABG stat now and give another 3 amps of biacrb if Ph below 7.2 Hold heparin drip and check CBC, trend trop & lactate Q4-6 hr STAT transfer for higher level of care IV insulin drip, BS goal <180 Switch PPI to IV [id number] for GI PPX CCT 60 min Plan discussed with ICU medical staff Time Spent With Patient Critical Care time: I spent a total of [60] minutes of critical care time on this patient's care today; this time is exclusive of procedural time.
[2022-05-21 06:23] LABS: Procalcitonin 1.21 ng/mL (<0.5)
[2022-05-21 06:27] LABS: Calcium 8.1 mg/dL (8.4-10.2); Chloride 95 mmol/L (98-107); Glucose 402 mg/dL (70-100); HEMOLYSIS < 15 (0-50); Sodium 136 mmol/L (137-145)
--- NOTE | 2022-05-21 06:30 | PM.EVENT ---
Event Note Event Note (Rapid Response, Code, or fall): there are preop labs in the scanned labs document from 04/25/22-- these demonstrated a normal K or 4.9 and normal Cr 1.12 at that time-- these can be found in the labs tab under scanned outside labs
[2022-05-21 06:38] LABS: Lactate (Lactic Acid) 8.4 mmol/L (0.7-2.1)
[2022-05-21 06:39] LABS: Estimated Glomerular Filt Rate 3 mL/min (>60)
[2022-05-21 06:40] LABS: Blood Urea Nitrogen 119 mg/dL (7-17); Carbon Dioxide 8 mmol/L (22-32); Potassium 8.2 mmol/L (3.4-5.1)
[2022-05-21 06:41] LABS: Ketones (Beta-Hydroxybutyrate) 4.42 mmol/L (<0.27)
[2022-05-21 06:44] LABS: Troponin I 0.297 ng/mL (0.01-0.034)
[2022-05-21] MEDS: INSULIN DRIP PREMIX 100 UNIT/100 ML PLAST..BAG 6 UNIT IV (06:50)
--- NOTE | 2022-05-21 07:42 | P.PN_ITS ---
Subjective Subjective Date Patient Seen: 05/21/22 Time Patient Seen: 07:42 Interval history: Patient intubated earlier this morning due to respiratory failure. Exam Vital Signs (past 8 hours): - 05/20/22 23:45 05/21/22 01:00 05/21/22 02:40 Pulse Rate 86 81 Respiratory Rate 28 H Blood Pressure 91/47 L 94/44 L 61/34 L Pulse Oximetry 94 92 Oxygen Flow Rate 3 4 Oxygen Delivery Method Room Air Oxygen Flow Rate 4 Narrative Exam Narrative: Patient is intubated Objective Labs Result Diagrams: 05/21/22 03:20 05/21/22 05:55 Labs: Laboratory Results - last 24 hr 05/20/22 05/20/22 05/21/22 12:29 12:55 03:20 WBC RBC Hgb Hct MCV MCH MCHC RDW Plt Count Neut % (Auto) Lymph % (Auto) [place] % (Auto) Eos % (Auto) Baso % (Auto) Neut # (Auto) Lymph # (Auto) [place] # (Auto) Eos # (Auto) Baso # (Auto) ABG pH ABG pCO2 ABG pO2 ABG HCO3 ABG Total CO2 ABG O2 Saturation ABG Base Excess FiO2 Sodium 133 L Potassium 9.7 H* Chloride 95 L Carbon Dioxide 8 L* BUN 120 H* Creatinine 15.2 H* Estimated GFR 3 L BUN/Creatinine Ratio 7.9 Glucose 27 L* 303 H D Hemoglobin A1c Lactate Calcium 7.6 L Magnesium 1.8 Total Bilirubin 0.3 AST 17 ALT 22 Alkaline Phosphatase 100 Total Creatine Kinase 173 H CK-MB (CK-2) 2.90 H CK-MB (CK-2) Rel Index 1.7 Troponin I 0.072 H Total Protein 7.2 Albumin 4.1 Globulin 3.1 Albumin/Globulin Ratio 1.3 Procalcitonin Ketones SARS-CoV-2 (PCR) Negative 05/21/22 05/21/22 05/21/22 03:20 03:20 03:20 WBC 21.1 H RBC 3.91 L Hgb 11.3 L Hct 36.1 MCV 92.3 MCH 29.0 MCHC 31.4 RDW 14.4 Plt Count 386 Neut % (Auto) 95.4 H Lymph % (Auto) 3.9 L [place] % (Auto) 0.6 L Eos % (Auto) 0.0 L Baso % (Auto) 0.1 Neut # (Auto) 73119 H Lymph # (Auto) 800 L [place] # (Auto) 100 Eos # (Auto) 0 Baso # (Auto) 0 ABG pH ABG pCO2 ABG pO2 ABG HCO3 ABG Total CO2 ABG O2 Saturation ABG Base Excess FiO2 Sodium Potassium Chloride Carbon Dioxide BUN Creatinine Estimated GFR BUN/Creatinine Ratio Glucose Hemoglobin A1c 6.7 H Lactate Calcium Magnesium Total Bilirubin AST ALT Alkaline Phosphatase Total Creatine Kinase CK-MB (CK-2) CK-MB (CK-2) Rel Index Troponin I Total Protein Albumin Globulin Albumin/Globulin Ratio Procalcitonin Ketones 4.42 H SARS-CoV-2 (PCR) 05/21/22 05/21/22 05/21/22 03:20 03:35 04:15 WBC RBC Hgb Hct MCV MCH MCHC RDW Plt Count Neut % (Auto) Lymph % (Auto) [place] % (Auto) Eos % (Auto) Baso % (Auto) Neut # (Auto) Lymph # (Auto) [place] # (Auto) Eos # (Auto) Baso # (Auto) ABG pH 7.06 L* ABG pCO2 36.7 ABG pO2 38 L* ABG HCO3 10 L ABG Total CO2 12 L ABG O2 Saturation 52 L* ABG Base Excess -20.0 L FiO2 15 Sodium 140 Potassium 7.2 H* D Chloride 97 L Carbon Dioxide 7 L* BUN 117 H* Creatinine 13.9 H* Estimated GFR 3 L BUN/Creatinine Ratio 8.4 Glucose 404 H D Hemoglobin A1c Lactate Calcium 9.0 Magnesium Total Bilirubin 0.4 AST 226 H ALT 203 H Alkaline Phosphatase 93 Total Creatine Kinase CK-MB (CK-2) CK-MB (CK-2) Rel Index Troponin I Total Protein 6.5 Albumin 3.6 Globulin 2.9 Albumin/Globulin Ratio 1.2 Procalcitonin 1.21 H Ketones SARS-CoV-2 (PCR) 05/21/22 05/21/22 05/21/22 04:25 05:55 05:55 WBC RBC Hgb Hct MCV MCH MCHC RDW Plt Count Neut % (Auto) Lymph % (Auto) [place] % (Auto) Eos % (Auto) Baso % (Auto) Neut # (Auto) Lymph # (Auto) [place] # (Auto) Eos # (Auto) Baso # (Auto) ABG pH 6.92 L* ABG pCO2 37.5 ABG pO2 82 ABG HCO3 8 L ABG Total CO2 9 L ABG O2 Saturation 86 L ABG Base Excess -25.0 L FiO2 100 Sodium 136 L Potassium 8.2 H* Chloride 95 L Carbon Dioxide 8 L* BUN 119 H* Creatinine 14.8 H* Estimated GFR 3 L BUN/Creatinine Ratio 8.0 Glucose 402 H Hemoglobin A1c Lactate 8.4 H* Calcium 8.1 L Magnesium Total Bilirubin AST ALT Alkaline Phosphatase Total Creatine Kinase CK-MB (CK-2) CK-MB (CK-2) Rel Index Troponin I Total Protein Albumin Globulin Albumin/Globulin Ratio Procalcitonin Ketones SARS-CoV-2 (PCR) 05/21/22 05:55 WBC RBC Hgb Hct MCV MCH MCHC RDW Plt Count Neut % (Auto) Lymph % (Auto) [place] % (Auto) Eos % (Auto) Baso % (Auto) Neut # (Auto) Lymph # (Auto) [place] # (Auto) Eos # (Auto) Baso # (Auto) ABG pH ABG pCO2 ABG pO2 ABG HCO3 ABG Total CO2 ABG O2 Saturation ABG Base Excess FiO2 Sodium Potassium Chloride Carbon Dioxide BUN Creatinine Estimated GFR BUN/Creatinine Ratio Glucose Hemoglobin A1c Lactate Calcium Magnesium Total Bilirubin AST ALT Alkaline Phosphatase Total Creatine Kinase CK-MB (CK-2) CK-MB (CK-2) Rel Index Troponin I 0.297 H* Total Protein Albumin Globulin Albumin/Globulin Ratio Procalcitonin Ketones SARS-CoV-2 (PCR) PFSH Medical History Diabetes GERD (gastroesophageal reflux disease) HLD (hyperlipidemia) HTN (hypertension) Lumbar disc herniation Neuropathy Ovarian cancer (~2014) Sciatica Surgical History History of hysterectomy Social History household members: significant other Smoking Status: Former smoker alcohol intake: current Assessment & Plan Post-op Postoperative Procedures: Procedures Operation Date: 05/20/22 12:45 Actual Procedure Side Surgeon p L4-5 microdiscectomy Left Haylee Saldaña MD Postoperative day: 1 Postoperative status narrative: Status post L4-L5 left microdiskectomy May 20, [address] Saldaña Pinhole sized durotomy which is not having active CSF leakage, patient may progress activity as tolerated without having to perform any dural leak precauti ons due to lack of active CSF leak Code blue called proximally 3:30 a.m.. Hospitalist consulted. Patient intubated due to respiratory failure, status post cardiac arrest secondary to hyperkalemia Patient underwent several rounds of CPR and was eventually restored to a normal rhythm after having her potassium corrected Acute renal failure in the setting of severe hyperkalemia Acute respiratory failure with a severe uncompensated respiratory acidosis Suspected bacterial pneumonia, lactate 8.4 Postoperative plan narrative: Likely transfer to [facility] today per hospitalist
[2022-05-21] MEDS: fentaNYL 1,000 MCG in DEXTROSE 5% IN WATER 230 ML 23.734 MCG IV (08:00)
--- NOTE | 2022-05-21 08:02 | RT ---
per dr Suarez At [id number] changed rr to 32
--- NOTE | 2022-05-21 08:03 | PM.PN.1 ---
Exam Vital Signs (past 8 hours): - 05/21/22 01:00 05/21/22 02:40 05/21/22 07:57 Pulse Rate 86 81 60 Respiratory Rate 28 H 46 H Blood Pressure 94/44 L 61/34 L Pulse Oximetry 94 92 Oxygen Flow Rate 3 4 Oxygen Delivery Method Room Air Oxygen Flow Rate 4 Objective Labs Result Diagrams: 05/21/22 03:20 05/21/22 05:55 Labs: Laboratory Results - last 24 hr 05/20/22 05/20/22 05/21/22 12:29 12:55 03:20 WBC RBC Hgb Hct MCV MCH MCHC RDW Plt Count Neut % (Auto) Lymph % (Auto) [place] % (Auto) Eos % (Auto) Baso % (Auto) Neut # (Auto) Lymph # (Auto) [place] # (Auto) Eos # (Auto) Baso # (Auto) ABG pH ABG pCO2 ABG pO2 ABG HCO3 ABG Total CO2 ABG O2 Saturation ABG Base Excess FiO2 Sodium 133 L Potassium 9.7 H* Chloride 95 L Carbon Dioxide 8 L* BUN 120 H* Creatinine 15.2 H* Estimated GFR 3 L BUN/Creatinine Ratio 7.9 Glucose 27 L* 303 H D Hemoglobin A1c Lactate Calcium 7.6 L Magnesium 1.8 Total Bilirubin 0.3 AST 17 ALT 22 Alkaline Phosphatase 100 Total Creatine Kinase 173 H CK-MB (CK-2) 2.90 H CK-MB (CK-2) Rel Index 1.7 Troponin I 0.072 H Total Protein 7.2 Albumin 4.1 Globulin 3.1 Albumin/Globulin Ratio 1.3 Procalcitonin Ketones SARS-CoV-2 (PCR) Negative 05/21/22 05/21/22 05/21/22 03:20 03:20 03:20 WBC 21.1 H RBC 3.91 L Hgb 11.3 L Hct 36.1 MCV 92.3 MCH 29.0 MCHC 31.4 RDW 14.4 Plt Count 386 Neut % (Auto) 95.4 H Lymph % (Auto) 3.9 L [place] % (Auto) 0.6 L Eos % (Auto) 0.0 L Baso % (Auto) 0.1 Neut # (Auto) [address] H Lymph # (Auto) 800 L [place] # (Auto) 100 Eos # (Auto) 0 Baso # (Auto) 0 ABG pH ABG pCO2 ABG pO2 ABG HCO3 ABG Total CO2 ABG O2 Saturation ABG Base Excess FiO2 Sodium Potassium Chloride Carbon Dioxide BUN Creatinine Estimated GFR BUN/Creatinine Ratio Glucose Hemoglobin A1c 6.7 H Lactate Calcium Magnesium Total Bilirubin AST ALT Alkaline Phosphatase Total Creatine Kinase CK-MB (CK-2) CK-MB (CK-2) Rel Index Troponin I Total Protein Albumin Globulin Albumin/Globulin Ratio Procalcitonin Ketones 4.42 H SARS-CoV-2 (PCR) 05/21/22 05/21/22 05/21/22 03:20 03:35 04:15 WBC RBC Hgb Hct MCV MCH MCHC RDW Plt Count Neut % (Auto) Lymph % (Auto) [place] % (Auto) Eos % (Auto) Baso % (Auto) Neut # (Auto) Lymph # (Auto) [place] # (Auto) Eos # (Auto) Baso # (Auto) ABG pH 7.06 L* ABG pCO2 36.7 ABG pO2 38 L* ABG HCO3 10 L ABG Total CO2 12 L ABG O2 Saturation 52 L* ABG Base Excess -20.0 L FiO2 15 Sodium 140 Potassium 7.2 H* D Chloride 97 L Carbon Dioxide 7 L* BUN 117 H* Creatinine 13.9 H* Estimated GFR 3 L BUN/Creatinine Ratio 8.4 Glucose 404 H D Hemoglobin A1c Lactate Calcium 9.0 Magnesium Total Bilirubin 0.4 AST 226 H ALT 203 H Alkaline Phosphatase 93 Total Creatine Kinase CK-MB (CK-2) CK-MB (CK-2) Rel Index Troponin I Total Protein 6.5 Albumin 3.6 Globulin 2.9 Albumin/Globulin Ratio 1.2 Procalcitonin 1.21 H Ketones SARS-CoV-2 (PCR) 05/21/22 05/21/22 05/21/22 04:25 05:55 05:55 WBC RBC Hgb Hct MCV MCH MCHC RDW Plt Count Neut % (Auto) Lymph % (Auto) [place] % (Auto) Eos % (Auto) Baso % (Auto) Neut # (Auto) Lymph # (Auto) [place] # (Auto) Eos # (Auto) Baso # (Auto) ABG pH 6.92 L* ABG pCO2 37.5 ABG pO2 82 ABG HCO3 8 L ABG Total CO2 9 L ABG O2 Saturation 86 L ABG Base Excess -25.0 L FiO2 100 Sodium 136 L Potassium 8.2 H* Chloride 95 L Carbon Dioxide 8 L* BUN 119 H* Creatinine 14.8 H* Estimated GFR 3 L BUN/Creatinine Ratio 8.0 Glucose 402 H Hemoglobin A1c Lactate 8.4 H* Calcium 8.1 L Magnesium Total Bilirubin AST ALT Alkaline Phosphatase Total Creatine Kinase CK-MB (CK-2) CK-MB (CK-2) Rel Index Troponin I Total Protein Albumin Globulin Albumin/Globulin Ratio Procalcitonin Ketones SARS-CoV-2 (PCR) 05/21/22 05:55 WBC RBC Hgb Hct MCV MCH MCHC RDW Plt Count Neut % (Auto) Lymph % (Auto) [place] % (Auto) Eos % (Auto) Baso % (Auto) Neut # (Auto) Lymph # (Auto) [place] # (Auto) Eos # (Auto) Baso # (Auto) ABG pH ABG pCO2 ABG pO2 ABG HCO3 ABG Total CO2 ABG O2 Saturation ABG Base Excess FiO2 Sodium Potassium Chloride Carbon Dioxide BUN Creatinine Estimated GFR BUN/Creatinine Ratio Glucose Hemoglobin A1c Lactate Calcium Magnesium Total Bilirubin AST ALT Alkaline Phosphatase Total Creatine Kinase CK-MB (CK-2) CK-MB (CK-2) Rel Index Troponin I 0.297 H* Total Protein Albumin Globulin Albumin/Globulin Ratio Procalcitonin Ketones SARS-CoV-2 (PCR) [facility] Medical History Diabetes GERD (gastroesophageal reflux disease) HLD (hyperlipidemia) HTN (hypertension) Lumbar disc herniation Neuropathy Ovarian cancer (~2014) Sciatica Surgical History History of hysterectomy Social History household members: significant other Smoking Status: Former smoker alcohol intake: current Assessment & Plan Assessment & Plan narrative: POD#1 s/p L4-5 microdiscectomy. Patient had acute cardiac ischemia and coded during the evening. Resuscitation was performed by physicians in house and was able to stabilize patient. Currently patient is intubated and transferred to ICU. Additional emergency work up showed patient has pulmonary pathology, possible pneumonia, hyperkalemia, renal failure. Unable to assess neuro status due to intubation and sedation. Currently planned to transfer to [facility] via helicopter, on hold due to limited visibility. I spoke to patient's significant other, Kemi, and updated her with current status and plan for Padmini's care. Will continue current care and will update patient's family with any additional information. Time Spent With Patient Critical Care time: I spent a total of [] minutes of critical care time on this patient's care today; this time is exclusive of procedural time.
--- NOTE | 2022-05-21 08:04 | PC.NURSE ---
Addendum entered by Eileen Mcclellan R.N. 05/21/22 09:51: 0951- Report called to Amaya VICTOR. [facility]. Addendum entered by Leda Mendiola R.N. 05/21/22 09:31: critical labs Lactate 5.1 Phos12.9, Dr Álvarez notified, no new orders at this time, transferring to [facility] within 20 minutes Original Note: 0310-Event note- Responded to rapid response in room 216. Upon arrival patient found to be in trendelenberg with BP of 63/38. Patient is awake and states she is having chest pressure and nausea. Code called and NS hung wide open. Crash cart at bedside, defib pads placed, Dr. Garvin ER MD arrived at bedside. 0325- Levophed gtt started per order. 0333- Central line placed by ER MD 0340 to 0354- CPR in progress see code documentation 0354- Pt intubated ETT 7.0 25 at the lip, after CXR ETT pulled back by RT per radiology report. Patient given a total of 5 amps of Bicarb, and started on a Bicarb gtt. Propofol for sedation, Critical potassium treated per MD orders. See labs. Initially patient started on a Heparin gtt cardiac protocol. This was discontinued at 0545 per MD. Elizabeth Catheter placed at 0425, urine is purulent with heavy sediment MD aware, sent for UA/culture. Patient awake and nodding appropriately at 0700 orders to start Fentanyl gtt for pain. Pt has soft wrist restraints per protocol. Patient is in a accelerated ventricular rhythm MD aware. Patient started on a Insulin gtt per order. Family notified of change of condition, see primary RN note by Loreto Roberts RN.
--- NOTE | 2022-05-21 08:07 | PM.PROC.1 ---
Procedures Date/Time Date of procedure: 05/21/22 Time of procedure: 08:07 General Procedure description: Arterial Line After properly positioning the patient's wrist in the standard fashion, the site was prepped and draped in a sterile fashion. Next, the radial artery was entered, noting bright red, pulsatile flow. ?Multiple attempts at threading the guidewire which had difficulty passing, which kinks on 2 occasions and the catheter was attempted to insert but no blood returned. Procedure was aborted after 3 attempts. Complications: ?The patient tolerated the procedure well and no complications were noted. Estimated Blood Loss: minimal
[2022-05-21 08:13] LABS: Reflexed Lactate in 2 Hours Y
[2022-05-21 08:15] LABS: PCO2 ABG 41.9 mmHg (35-45); PO2 ABG 59 mmHg (80-100)
[2022-05-21 08:16] LABS: HCO3 ABG 9 mmol/L (22-26); Oxygen Saturation ABG 59 % (95-100); TCO2 ABG 11 mmol/L (21-31)
--- NOTE | 2022-05-21 08:17 | CM.DANOTE ---
Addendum entered by Martha Felix R.N. 05/21/22 10:36: Attempted to contact Kemi pt life partner, to verbalize that pt has been transferred to [facility] instead of [place] per Coordinator. No answer. No message left. Martha Felix RN/KARENP Original Note: DCP Assessment: Payor: Laurie AUGUSTE PCP: Unknown. Per medical team, pt is needing a transfer to a higher level of care due to the the events that happened overnight. No needs from this DCP. Helicopter transfer is scheduled for sometime today to [facility]. P: Pt needing higher level of care. Pt to transfer sometime today. Martha Felix RN/NNAMDI Discharge Planning/Care Management Advanced directive, confirm from FAMILY Start: 05/20/22 18:10 Freq: Q24H Status: Active Protocol: Document 05/20/22 18:37 YAD (Rec: 05/20/22 18:49 YAD [id number]) Co-signed By Padmini Franklin RN Advance Directive, confirm on record Time 18:47 Person contacted Patient Copy received No CM Discharge Assessment Start: 05/21/22 08:13 Freq: Status: Active Protocol: Document 05/21/22 08:13 AJ (Rec: 05/21/22 08:14 AJ [id number]) Discharge Planning Assessment Assigned [employer] Martha Felix RN/NNAMDI Advance Directives? No Advance Directives on File No History Provided By Medical Record Prior Living Arrangements House Household Members significant other Discharge Plan Transfer to Higher Level of Care Transportation Arrangement Helicopter to [facility] Referrals Initiated Other Additional Comment Pt needing higher level of care. Transfer plans in process. Review Status In Process Please Provide Date Initial DC 05/21/22 Assessment Was Performed Next Review Type Continued Stay Review Pre-Anesthesia Assessment Start: 05/19/22 08:01 Freq: Status: Active Protocol: Document 05/19/22 08:01 CAB (Rec: 05/19/22 09:04 CAB [id number]) Pre-Anesthesia Assessment Patient Information Reviewed Via Phone Assessment Assessment Completed With Other Comment Pt gave verbal to speak with life partner Kemi Diagnostic Results BMP/CMP,CBC Comment COVID screen-RAPID on admit Primary Care Provider Sol Moura Seen Specialist in Last 12 Months Yes Specialist Seen Orthopedist Primary Language Malagasy [employer] Head Required No Height 167.64 cm Weight 136.078 kg Body Mass Index (BMI) 48.4 Hearing Ability Normal Visual Assist Glasses Dentition Type Teeth, Natural Present Barriers to Learning None Hx Anesthesia Reactions No: Metabolizes procaine quickly Hx Family Anesthesia Reaction No Hx Malignant Hyperthermia No Hx Blood Transfusions No Anesthesia Review Requested No Neuro Intensivist Physician No alcohol intake current alcohol intake frequency a few times a month Smoking Status Former smoker how long ago did patient quit smoking Quit approx 10+ years ago Substance Use Type does not use Pain Present Pain Reported Musculoskeletal Symptoms Abnormal Gait,Back Pain, Difficulty Walking,Muscle Weakness,Radiating Pain into Limb History of Falling (Recent or History of No ) Patient is completely paralyzed or No completely immobile Prosthesis or Orthotic Device Front Wheel Walker Mental Status Oriented to own ability Is patient on oxygen? No Does patient have VILLASENOR/SOB No Hx Sleep Apnea No Currently Taking a Beta [place] Yes: Metoprolol Can You Climb a Flight of Stairs Without Yes SOB Hx Chest Pain No Hx SOB No Hx Syncope or Dizziness Yes: A little Anti-Coagulant Therapy No Has a Data Migration Lead No Cardiac Testing No Hx Pacemaker/ICD No Pacemaker Rep Required? No Diet Type At Home Regular Dysphagia No Gastrointestinal Symptoms Reflux Urinary Catheter Present No Hx Urinary Self Catheterization No Diabetes Yes HgbA1C 7.0 Date 04/27/22 Patient No Lactating No Hx Drug Resistant Organism No Presence of External or Internal Medical No Devices Have you had any close contact with No someone diagnosed with COVID-19? Received a COVID vaccine? Yes Received all doses? Yes Marital Status Single Lives With significant other Current Living Arrangements House Support System Significant Other Patient Discharge Plan Description Return Home Emergency Contact Name Kemi Higgins (Life partner) Emergency Contact PAC Instructions Assistance for 24 hours post- op,Diabetes instructions, Durable medical equipment, Medications to take/avoid, Nasal antibiotic,No ETOH/ petroleum product on skin DOS, NPO,Post-op transportation,Pre -surgical wash,Sturdy shoes/ comfortable clothes,Do not bring valuables and remove jewelry
--- NOTE | 2022-05-21 08:41 | SUR.PREOP ---
late Entry. Call from Lab with Critical value Glucose 27. Dr Abdalla at bedside and notified. Pt had already received oral glucose gel and D5LR bolus running at this time.
[2022-05-21 09:28] LABS: Lactate 2HR (Lactic Acid Rflx) 5.1 mmol/L (0.7-2.1); Phosphorous 12.9 mg/dL (2.5-4.5)
[2022-05-21 09:51] LABS: Adenovirus Not Detected (Not Detect); B. parapertussis Not Detected (Not Detecte); Bordetella pertussis Not Detected (Not Detecte); Chlamydophila pneumoniae Not Detected (Not Detect); Coronavirus 229E Not Detected (Not Detect); Coronavirus HKU1 Not Detected (Not Detect); Coronavirus NL 63 Not Detected (Not Detect); Coronavirus OC43 Not Detected (Not Detect); Human Metapneumovirus Not Detected (Not Detect); Human Rhinovirus/Enterovirus Not Detected (Not Detect); Influenza A Not Detected (Not Detect); Influenza B Not Detected (Not Detect); Mycoplasma pneumoniae Not Detected (Not Detect); Parainfluenza Virus 1 Not Detected (Not Detect); Parainfluenza Virus 2 Not Detected (Not Detect); Parainfluenza Virus 3 Not Detected (Not Detect); Parainfluenza Virus 4 Not Detected (Not Detect); Respiratory Syncytial Virus Not Detected (Not Detect); SARS- CoV-2 Not Detected (Not Detecte)
[2022-05-21 10:39] LABS: Calcium 7.9 mg/dL (8.4-10.2); Carbon Dioxide 14 mmol/L (22-32); Chloride 92 mmol/L (98-107); Glucose 371 mg/dL (70-100); Sodium 138 mmol/L (137-145)
--- NOTE | 2022-05-21 10:40 | P.DS_ITS ---
History of Present Illness History of Present Illness Date Patient Seen: 05/21/22 Time Patient Seen: 07:00 Chief complaint: INPT Narrative: Hospitalist [facility] [employer] note: Nursing contacted me requesting consult by Orthopedic surgery for this patient who is a 56-year-old female pod 1.? L5-6 lumbar laminectomy.? She was noted to have very soft blood pressures and by the time I came up to the floor her blood pressure was in the low 90s.? Apparently during that time it dropped even to a systolic of 60, the patient was reportedly complaining of chest pain and difficulty breathing and by the time I reached the floor CPR was being performed on the patient. EKG was done and patient was thought to be having a STEMI. She apparently told her nurse that she had mild chest pain. CPR was underway when I arrived to the room. ED doc note: Called to patient bedside as a code blue.? Patient is a 56-year-old female post operative microdiskectomy L4-5 thought to have a STEMI.? Very wide complex bradycardic EKG.? Patient is hypotensive diaphoretic but is awake and alert.? She is having some mild chest discomfort but not bad.? When asked about code status she is full code.? Concern for probable hyperkalemia.? Unfortunately no labs were drawn preop or postop.? Patient started to lose pulses and CPR started.? I start did confirm potassium greater than 9.? Bicarb was pushed.? Amiodarone also started cases possible VFib she got 150 mg at the time she was still awake.? POC glucose was in the 300s.? CPR continued epinephrine insulin and glucose were also given.? Patient became more responsive but not able to protect airway.? Complex on the monitor did change and became significantly more narrow.? No obvious ST elevations.? Patient was intubated and a central line placed by myself. Patient is not a STEMI. Discharge Providers Provider Date of admission: 05/20/22 11:16 Discharge Date: 05/21/22 Consults: 05/21/22 04:49 Consult to Tele-[employer] grader Routine Comment: Consulting Provider: [employer] Reason for consultation: [employer] Has provider been notified: Yes Discharge provider: Ed Álvarez DO Summary Hospital Course Discharge Diagnosis: Cardiac arrest in the setting of acute hyperkalemia and presumed septic shock Acute renal failure in the setting of septic shock Acute respiratory failure with a severe uncompensated metabolic acidosis Suspected bacterial pneumonia concerning for ARDS Chronic problems: Morbid obesity DM2 HTN HLD Hospital Course: 56-year-old female with medical H/o of DM II, HTN, HLD admitted for lumbar surgery on 05/20 status post-operative microdiskectomy L4-5, overnight developed mild chest discomfort, diaphoresis and hypotension, found to have wide complex bradycardic EKG changes. Received a dose of amiodarone for possible VFib, complicated by cardiac arrest, ROSC after 14 min, found to have severe hy perkalemia (K of 9), severe renal failure with Cr 13, severe metabolic academia with pH 6.9 and possible DKA due to elevated BG to 500 and ketones. Unfortunately no labs were drawn preop or postop.?Patient was intubated and RIJ placed. Start on propofol and fentanyl. Vent setting 100% FiO2 and PEEP 10 with sats 95%. CXR showed bilateral pulmonary infiltrates PNA vs CHF with left sided pleural effusion. Started on heparin for concern of ME but ED doc consulted who did not think was STEMI due to sepsis and cardiac arrest. Baseline Cr 1.12 on 05/05/2022. Pt was on PPI, Lisinopril, amlodipine, metformin, glipizide, metoprolol, simvastatin and NSAIDs per home meds review. Currently on levophed and vasopressin. Multiple attempts at arterial line failed by hospitalist then anesthesia. Patient was accepted for transfer to [facility] for ICU care and emergent HD. Time Spent with Patient Time spent: Greater than 30 minutes Exam Vital Signs (past 8 hours): - 05/21/22 07:57 05/21/22 04:49 Pulse Rate 60 82 Respiratory Rate 46 H 16 Blood Pressure 125/50 L Pulse Oximetry 87 L Oxygen Delivery Method Room Air Oxygen Flow Rate 4 Narrative Exam Narrative: Gen: morbidly obese 56 y.o. female, intubated and sedated HEENT: normocephalic, atraumatic, conjunctiva clear, sclera non-icteric, oral mucosa pink and moist Neck: supple, full ROM, no JVD, trachea is midline Resp: Patient is currently vented CV: Regular rate and rhythm, no murmurs Abd: Obese Skin: Appears to have Joanie in her pannus area Neuro: Speech clear and coherent just prior to intubation obtunded Extremities: Appears to have good cap refill Psych: Unable to assess Objective Labs Result Diagrams: 05/21/22 03:20 05/21/22 05:55 Labs: Laboratory Results - last 24 hr 05/20/22 05/20/22 05/21/22 12:29 12:55 03:20 WBC RBC Hgb Hct MCV MCH MCHC RDW Plt Count Neut % (Auto) Lymph % (Auto) [place] % (Auto) Eos % (Auto) Baso % (Auto) Neut # (Auto) Lymph # (Auto) [place] # (Auto) Eos # (Auto) Baso # (Auto) ABG pH ABG pCO2 ABG pO2 ABG HCO3 ABG Total CO2 ABG O2 Saturation ABG Base Excess FiO2 Sodium 133 L Potassium 9.7 H* Chloride 95 L Carbon Dioxide 8 L* BUN 120 H* Creatinine 15.2 H* Estimated GFR 3 L BUN/Creatinine Ratio 7.9 Glucose 27 L* 303 H D Hemoglobin A1c Lactate Calcium 7.6 L Phosphorus Magnesium 1.8 Total Bilirubin 0.3 AST 17 ALT 22 Alkaline Phosphatase 100 Total Creatine Kinase 173 H CK-MB (CK-2) 2.90 H CK-MB (CK-2) Rel Index 1.7 Troponin I 0.072 H Total Protein 7.2 Albumin 4.1 Globulin 3.1 Albumin/Globulin Ratio 1.3 Procalcitonin Nasal Screen MRSA (PCR) Ketones Chlamy pneumoniae PCR Adenovirus (PCR) B. pertussis DNA (PCR) B.parapertussis DNA PCR Coronavirus OC43 (PCR) Coronavirus HKU1 (PCR) Coronavirus 229E (PCR) SARS-CoV-2 (PCR) Negative Coronavirus NL63 (PCR) Human Metapneumovir PCR Influenza Type A (PCR) Influenza Type B (PCR) M. pneumoniae (PCR) Parainfluenza 1 (PCR) Parainfluenza 2 (PCR) Parainfluenza 3 (PCR) Parainfluenza 4 (PCR) RSV (PCR) Entero/Rhino (PCR) 05/21/22 05/21/22 05/21/22 03:20 03:20 03:20 WBC 21.1 H RBC 3.91 L Hgb 11.3 L Hct 36.1 MCV 92.3 MCH 29.0 MCHC 31.4 RDW 14.4 Plt Count 386 Neut % (Auto) 95.4 H Lymph % (Auto) 3.9 L [place] % (Auto) 0.6 L Eos % (Auto) 0.0 L Baso % (Auto) 0.1 Neut # (Auto) 70413 H Lymph # (Auto) 800 L [place] # (Auto) 100 Eos # (Auto) 0 Baso # (Auto) 0 ABG pH ABG pCO2 ABG pO2 ABG HCO3 ABG Total CO2 ABG O2 Saturation ABG Base Excess FiO2 Sodium Potassium Chloride Carbon Dioxide BUN Creatinine Estimated GFR BUN/Creatinine Ratio Glucose Hemoglobin A1c 6.7 H Lactate Calcium Phosphorus Magnesium Total Bilirubin AST ALT Alkaline Phosphatase Total Creatine Kinase CK-MB (CK-2) CK-MB (CK-2) Rel Index Troponin I Total Protein Albumin Globulin Albumin/Globulin Ratio Procalcitonin Nasal Screen MRSA (PCR) Ketones 4.42 H Chlamy pneumoniae PCR Adenovirus (PCR) B. pertussis DNA (PCR) B.parapertussis DNA PCR Coronavirus OC43 (PCR) Coronavirus HKU1 (PCR) Coronavirus 229E (PCR) SARS-CoV-2 (PCR) Coronavirus NL63 (PCR) Human Metapneumovir PCR Influenza Type A (PCR) Influenza Type B (PCR) M. pneumoniae (PCR) Parainfluenza 1 (PCR) Parainfluenza 2 (PCR) Parainfluenza 3 (PCR) Parainfluenza 4 (PCR) RSV (PCR) Entero/Rhino (PCR) 05/21/22 05/21/22 05/21/22 03:20 03:20 03:20 WBC RBC Hgb Hct MCV MCH MCHC RDW Plt Count Neut % (Auto) Lymph % (Auto) [place] % (Auto) Eos % (Auto) Baso % (Auto) Neut # (Auto) Lymph # (Auto) [place] # (Auto) Eos # (Auto) Baso # (Auto) ABG pH ABG pCO2 ABG pO2 ABG HCO3 ABG Total CO2 ABG O2 Saturation ABG Base Excess FiO2 Sodium Potassium Chloride Carbon Dioxide BUN Creatinine Estimated GFR BUN/Creatinine Ratio Glucose Hemoglobin A1c Lactate 5.1 H* Calcium Phosphorus 12.9 H* Magnesium Total Bilirubin AST ALT Alkaline Phosphatase Total Creatine Kinase CK-MB (CK-2) CK-MB (CK-2) Rel Index Troponin I Total Protein Albumin Globulin Albumin/Globulin Ratio Procalcitonin 1.21 H Nasal Screen MRSA (PCR) Ketones Chlamy pneumoniae PCR Adenovirus (PCR) B. pertussis DNA (PCR) B.parapertussis DNA PCR Coronavirus OC43 (PCR) Coronavirus HKU1 (PCR) Coronavirus 229E (PCR) SARS-CoV-2 (PCR) Coronavirus NL63 (PCR) Human Metapneumovir PCR Influenza Type A (PCR) Influenza Type B (PCR) M. pneumoniae (PCR) Parainfluenza 1 (PCR) Parainfluenza 2 (PCR) Parainfluenza 3 (PCR) Parainfluenza 4 (PCR) RSV (PCR) Entero/Rhino (PCR) 05/21/22 05/21/22 05/21/22 03:35 04:15 04:25 WBC RBC Hgb Hct MCV MCH MCHC RDW Plt Count Neut % (Auto) Lymph % (Auto) [place] % (Auto) Eos % (Auto) Baso % (Auto) Neut # (Auto) Lymph # (Auto) [place] # (Auto) Eos # (Auto) Baso # (Auto) ABG pH 7.06 L* 6.92 L* ABG pCO2 36.7 37.5 ABG pO2 38 L* 82 ABG HCO3 10 L 8 L ABG Total CO2 12 L 9 L ABG O2 Saturation 52 L* 86 L ABG Base Excess -20.0 L -25.0 L FiO2 15 100 Sodium 140 Potassium 7.2 H* D Chloride 97 L Carbon Dioxide 7 L* BUN 117 H* Creatinine 13.9 H* Estimated GFR 3 L BUN/Creatinine Ratio 8.4 Glucose 404 H D Hemoglobin A1c Lactate Calcium 9.0 Phosphorus Magnesium Total Bilirubin 0.4 AST 226 H ALT 203 H Alkaline Phosphatase 93 Total Creatine Kinase CK-MB (CK-2) CK-MB (CK-2) Rel Index Troponin I Total Protein 6.5 Albumin 3.6 Globulin 2.9 Albumin/Globulin Ratio 1.2 Procalcitonin Nasal Screen MRSA (PCR) Ketones Chlamy pneumoniae PCR Adenovirus (PCR) B. pertussis DNA (PCR) B.parapertussis DNA PCR Coronavirus OC43 (PCR) Coronavirus HKU1 (PCR) Coronavirus 229E (PCR) SARS-CoV-2 (PCR) Coronavirus NL63 (PCR) Human Metapneumovir PCR Influenza Type A (PCR) Influenza Type B (PCR) M. pneumoniae (PCR) Parainfluenza 1 (PCR) Parainfluenza 2 (PCR) Parainfluenza 3 (PCR) Parainfluenza 4 (PCR) RSV (PCR) Entero/Rhino (PCR) 05/21/22 05/21/22 05/21/22 05:55 05:55 05:55 WBC RBC Hgb Hct MCV MCH MCHC RDW Plt Count Neut % (Auto) Lymph % (Auto) [place] % (Auto) Eos % (Auto) Baso % (Auto) Neut # (Auto) Lymph # (Auto) [place] # (Auto) Eos # (Auto) Baso # (Auto) ABG pH ABG pCO2 ABG pO2 ABG HCO3 ABG Total CO2 ABG O2 Saturation ABG Base Excess FiO2 Sodium 136 L Potassium 8.2 H* Chloride 95 L Carbon Dioxide 8 L* BUN 119 H* Creatinine 14.8 H* Estimated GFR 3 L BUN/Creatinine Ratio 8.0 Glucose 402 H Hemoglobin A1c Lactate 8.4 H* Calcium 8.1 L Phosphorus Magnesium Total Bilirubin AST ALT Alkaline Phosphatase Total Creatine Kinase CK-MB (CK-2) CK-MB (CK-2) Rel Index Troponin I 0.297 H* Total Protein Albumin Globulin Albumin/Globulin Ratio Procalcitonin Nasal Screen MRSA (PCR) Ketones Chlamy pneumoniae PCR Adenovirus (PCR) B. pertussis DNA (PCR) B.parapertussis DNA PCR Coronavirus OC43 (PCR) Coronavirus HKU1 (PCR) Coronavirus 229E (PCR) SARS-CoV-2 (PCR) Coronavirus NL63 (PCR) Human Metapneumovir PCR Influenza Type A (PCR) Influenza Type B (PCR) M. pneumoniae (PCR) Parainfluenza 1 (PCR) Parainfluenza 2 (PCR) Parainfluenza 3 (PCR) Parainfluenza 4 (PCR) RSV (PCR) Entero/Rhino (PCR) 05/21/22 05/21/22 05/21/22 06:00 08:50 08:50 WBC RBC Hgb Hct MCV MCH MCHC RDW Plt Count Neut % (Auto) Lymph % (Auto) [place] % (Auto) Eos % (Auto) Baso % (Auto) Neut # (Auto) Lymph # (Auto) [place] # (Auto) Eos # (Auto) Baso # (Auto) ABG pH 6.97 L* ABG pCO2 41.9 ABG pO2 59 L ABG HCO3 9 L ABG Total CO2 11 L ABG O2 Saturation 59 L* ABG Base Excess -22.0 L FiO2 Sodium Potassium Chloride Carbon Dioxide BUN Creatinine Estimated GFR BUN/Creatinine Ratio Glucose Hemoglobin A1c Lactate Calcium Phosphorus Magnesium Total Bilirubin AST ALT Alkaline Phosphatase Total Creatine Kinase CK-MB (CK-2) CK-MB (CK-2) Rel Index Troponin I Total Protein Albumin Globulin Albumin/Globulin Ratio Procalcitonin Nasal Screen MRSA (PCR) Negative for mrsa Ketones Chlamy pneumoniae PCR Not detected Adenovirus (PCR) Not detected B. pertussis DNA (PCR) Not detected B.parapertussis DNA PCR Not detected Coronavirus OC43 (PCR) Not detected Coronavirus HKU1 (PCR) Not detected Coronavirus 229E (PCR) Not detected SARS-CoV-2 (PCR) Not detected Coronavirus NL63 (PCR) Not detected Human Metapneumovir PCR Not detected Influenza Type A (PCR) Not detected Influenza Type B (PCR) Not detected M. pneumoniae (PCR) Not detected Parainfluenza 1 (PCR) Not detected Parainfluenza 2 (PCR) Not detected Parainfluenza 3 (PCR) Not detected Parainfluenza 4 (PCR) Not detected RSV (PCR) Not detected Entero/Rhino (PCR) Not detected PFSH Medical History Diabetes GERD (gastroesophageal reflux disease) HLD (hyperlipidemia) HTN (hypertension) Lumbar disc herniation Neuropathy Ovarian cancer (~2014) Sciatica Surgical History History of hysterectomy Social History household members: significant other Smoking Status: Former smoker alcohol intake: current Discharge Plan Discharge Plan Disposition: [facility]
[2022-05-21 10:45] LABS: HEMOLYSIS < 15 (0-50)
[2022-05-21 10:50] LABS: BUN Creatinine Ratio 8.9 (6-22); Estimated Glomerular Filt Rate 3 mL/min (>60)
[2022-05-21 10:52] LABS: Blood Urea Nitrogen 126 mg/dL (7-17); Potassium 7.2 mmol/L (3.4-5.1)
[2022-05-21] MEDS: NOREPINEPHRINE BITARTRATE/D5W 4 MG/250 ML PLAST..BAG 30 MG IV (11:01)
[2022-05-21 11:28] LABS: pH ABG 7.24 (7.35-7.45)
[2022-05-21 11:29] LABS: Fractionated Inspired Oxygen 100; HCO3 ABG 13 mmol/L (22-26); Oxygen Saturation ABG 92 % (95-100); PCO2 ABG 29.6 mmHg (35-45); PO2 ABG 72 mmHg (80-100); TCO2 ABG 14 mmol/L (21-31)
--- NOTE | 2022-05-21 11:57 | PC.NURSE ---
1054 ALS here to slat pickler pt for transfer to [facility] ICU, gtts infusing as noted in MAR, pt remains intubated and transferring with restraints in place. Unable to place art line, report called by previous shift nurse Eileen to staff at [facility]. VSS at time of transfer, no further pt contact at this time
[2022-05-21 12:20] LABS: Appearance Urine UA TURBID; Bilirubin Urine UA NEGATIVE (NEGATIVE); Color Urine UA YELLOW; Glucose Urine UA TRACE g/dL (Negative); Ketones Urine UA TRACE (NEGATIVE); Leukocyte Esterase Urine UA 2+ (NEGATIVE); Nitrite Urine UA NEGATIVE (Negative); Occult Blood Urine UA 3+ (Negative); Protein Urine UA 3+ (Negative); Specific Gravity Urine UA >=1.030 (1.000-1.035); Urobilinogen Urine UA 0.2 E.U./dL (0.2)
[2022-05-21 12:22] LABS: Bacteria Urine Many (>30); RBC Urine 30-100/HPF (0-5/HPF); Squamous Epithelial Cell Urine 1-5 /HPF (0-5/HPF); Transitional Epi Cells Urine 1-5/HPF (0-5/HPF); WBC Urine >100/HPF (0-5/HPF)
[2022-05-21 12:23] LABS: Culture Indicated Urine Specimen Cultured; Hyaline Casts Urine 5-10/LPF; Urine Comments WBC CLUMPS PRESENT
[2022-05-21 18:37] LABS: Troponin I 0.381 ng/mL (0.01-0.034)
[2022-05-21 19:24] LABS: pH ABG 6.92 (7.35-7.45)
[2022-05-21 19:30] LABS: pH ABG 7.06 (7.35-7.45)
[2022-05-21 19:32] LABS: pH ABG 6.97 (7.35-7.45)
== END 2022-05-21 10:54 | disposition short-term general hospital (02) | DRG 518 ==
LOC: AC 17:27 → ICU 05-21 07:11
PROVIDERS: Anesthesiology; Emergency Medicine; Internal Medicine Critical Care Medicine; Nurse Practitioner Family; Student in an Organized Health Care Education/Training Program; Admitting Provider Orthopaedic Surgery Orthopaedic Surgery of the Spine; Referring Provider Orthopaedic Surgery Orthopaedic Surgery of the Spine; Visit Provider Orthopaedic Surgery Orthopaedic Surgery of the Spine
PROC: 0SB20ZZ Excision of Lumbar Vertebral Disc, Open Approach (ICD-10-PCS; principal; 2022-05-20 12:45)
DX: M51.16 Intervertebral disc disorders with radiculopathy, lumbar region (principal); E11.10 Type 2 diabetes mellitus with ketoacidosis without coma; I46.8 Cardiac arrest due to other underlying condition; J96.01 Acute respiratory failure with hypoxia; J15.9 Unspecified bacterial pneumonia; R65.21 Severe sepsis with septic shock; N17.9 Acute kidney failure, unspecified; E87.4 Mixed disorder of acid-base balance; E87.5 Hyperkalemia; M48.062 Spinal stenosis, lumbar region with neurogenic claudication; E78.5 Hyperlipidemia, unspecified; I10 Essential (primary) hypertension; Z79.84 Long term (current) use of oral hypoglycemic drugs; Z87.891 Personal history of nicotine dependence; Z20.822 Contact with and (suspected) exposure to COVID-19
CPT/HCPCS: 36415; 36600; 71045; 72100; 76000; 80048; 80053; 81001; 82009; 82550; 82553; 82805; 82947; 82962; 83036; 83605; 83735; 84100; 84145; 84484; 85025; 87040; 87077; 87086; 87186; 87633; 87635; 87797; 92950; 93005; 93010; 94002; 94799; C9803; J0690; J1100; J2250; J2405; J2704; J2920; J3010; J7121